=== PATIENT | male | born 1995 | race Hispanic/Latino ===

== ENCOUNTER 2021-04-23 18:08 | Emergency (ER) | payer SELFPAY ==
[2021-04-23 20:12] VITALS: BP 122/84
--- NOTE | 2021-04-23 20:58 | Emergency Department Report ---
Chief Complaint: Weakness Stated Complaint: BEHAVIORAL PROBLEMS Time Seen by Provider: 04/23/21 20:47 - HPI History of Present Illness: 25-year-old male patient presents to the emergency department with his roommate requesting evaluation for "behavioral problems." Patient states he tested positive for COVID-19 approximately 2 weeks ago. His disease course and recovery has reportedly been uneventful. Today, he "began doing weird things like turning the faucet on and off." Patient is currently asymptomatic. Denies all other complaints at this time. - ROS Review of Systems: GENERAL: Negative for fever. CARDIOVASCULAR: Negative for chest pain. PULMONARY: Negative for shortness of breath. GASTROINTESTINAL: Negative for abdominal pain. MUSCULOSKELETAL: Negative for back pain. NEUROLOGICAL: Negative for headache. INTEGUMENTARY: Negative for rash. - Exam Vital Signs: Vital Signs 04/23/21 20:10 Temperature 98.4 F Pulse Rate 107 H Respiratory 19 Rate Blood Pressure 122/84 O2 Sat by Pulse 98 Oximetry Physical Exam: General: Awake and alert. No acute distress. Head: Atraumatic, normocephalic. Eyes: EOMI. Pupils are equal and round. Normal sclera and conjunctiva. ENT: Oral mucosa is moist. Normal pharyngeal exam. Neck: Supple. No lymphadenopathy. Pulmonary: No respiratory distress. Clear to auscultation bilaterally. Cardiac: Regular rate and rhythm. Pulses are palpable and equal bilaterally. No lower extremity cyanosis or edema. Skin: Warm and dry. No rashes. Abdomen: Soft, non-tender, non-protuberant. No guarding, rigidity, or rebound. Bowel sounds are normal. No organomegaly or masses noted. Back: Normal alignment. No CVA tenderness. Extremities: Symmetrical. Full range of motion intact. Neurological: Alert and oriented, appropriately interactive, no focal deficits. Psych: Cooperative. Appropriate mood and affect. Speech is evenly metered. Thoughts are logically construed. MSE screening note: Focused history and physical exam performed. Due to findings the following was ordered: ED Medical Decision Making - Medical Decision Making Patient presents to emergency department accompanied by his roommate requesting evaluation for "behavioral problems." Endorses recent history of COVID-19. No suicidal or homicidal ideation. No hallucinations. No paranoia. Patient is not clinically intoxicated. Patient is afebrile, hemodynamically stable, no respiratory distress, no hypoxia, tolerating oral intake without difficulty, no pain, normal neurological exam. Patient was mildly tachycardic in triage on arrival to the emergency department, which resolved spontaneously by the time physical examination was performed. There is no clinical indication for emergent diagnostic evaluation. Patient will be discharged home to continue symptomatic treatment. Patient expressed understanding and is agreeable to plan of care. Strict return precautions provided. BILLING/CODING: This patient encounter does not represent a certified medical emergency. ED Disposition for MSE Clinical Impression: Encounter for medical screening examination Disposition: HOME / SELF CARE / HOMELESS Is pt being admited?: No Does the pt Need Aspirin: No Condition: Stable Instructions: Medical Screening Exam Additional Instructions: Continue taking Tylenol every 4 hours and Motrin every 8 hours as needed for pain/fever. Rest. Drink plenty of fluids. Wash hands frequently to prevent disease transmission. Do not share food or drinks with others. Follow-up with your primary care provider this week. Call tomorrow to schedule appointment. Return to the emergency department immediately for new or worsening symptoms. Referrals: BRITNI JOHN MD [Staff Physician] - 3-5 Days Time of Disposition: 20:59
== END 2021-04-23 21:11 | disposition home or self-care (01) ==
LOC: ED 18:08
DX: Z00.00 Encounter for general adult medical examination without abnormal findings (principal)
CPT/HCPCS: 99281